=== PATIENT | male | born 1975 | race Caucasian/White ===

== ENCOUNTER 2017-01-15 11:09 | Emergency (ER) | payer BC ==
[2017-01-15 11:46] VITALS: BP 130/86
--- NOTE | 2017-01-15 12:20 | UC ---
Throat Pain/Nasal Robert HPI - HPI Summary HPI Summary: Increased left sinus pressure, ear pain, cough and low grade fever over the last week. - History of Current Complaint Chief Complaint: UCRespiratory Stated Complaint: SINUS Time Seen by Provider: 01/15/17 12:09 Hx Obtained From: Patient Onset/Duration: Lasting Minutes, Lasting Days Severity: Moderate Cough: Nonproductive Associated Signs & Symptoms: Positive: Wheezing, Sinus Discomfort, Fever - Allergies/Home Medications Allergies/Adverse Reactions: Allergies Allergy/AdvReac Type Severity Reaction Status Date / Time Penicillins Allergy Intermediate Hives Verified 01/15/17 11:46 PMH/Surg Hx/FS Hx/Imm Hx Previously Healthy: Yes - Surgical History Surgical History: Yes Surgery Procedure, Year, and Place: left leg vein stripping - Family History Known Family History: Negative: Diabetes - Social History Alcohol Use: Occasionally Substance Use Type: None Smoking Status (MU): Never Smoked Tobacco Review of Systems Constitutional: Fever Skin: Negative Eyes: Negative ENT: Sore Throat, Ear Ache, Nasal Discharge, Sinus Congestion, Sinus Pain/ Tenderness Respiratory: Cough Cardiovascular: Negative Gastrointestinal: Negative Genitourinary: Negative Motor: Negative Neurovascular: Negative Musculoskeletal: Negative Neurological: Headache Psychological: Negative All Other Systems Reviewed And Are Negative: Yes Physical Exam Triage Information Reviewed: Yes Appearance: Well-Nourished, Ill-Appearing, Pain Distress Vital Signs: Initial Vital Signs Temp 98.4 F 01/15/17 11:42 Pulse 64 01/15/17 11:42 Resp 16 01/15/17 11:42 BP 130/86 01/15/17 11:42 Pulse Ox 98 01/15/17 11:42 Vital Signs Reviewed: Yes Eye Exam: Normal ENT: Positive: Pharyngeal erythema, Nasal congestion, Nasal drainage, TM bulging , TM dull, TM red Dental Exam: Normal Neck exam: Normal Neck: Positive: Supple, Nontender, No Lymphadenopathy Respiratory Exam: Normal Respiratory: Positive: Chest non-tender, Lungs clear, Normal breath sounds Cardiovascular Exam: Normal Cardiovascular: Positive: RRR, No Murmur, Pulses Normal Abdominal Exam: Normal Abdomen Description: Positive: Nontender, No Organomegaly, Soft Bowel Sounds: Positive: Present Musculoskeletal Exam: Normal Musculoskeletal: Positive: Strength Intact, ROM Intact, No Edema Neurological Exam: Normal Neurological: Positive: Alert, Muscle Tone Normal Psychological Exam: Normal Skin Exam: Normal Throat Pain/Nasal Course/Dx - Course Course Of Treatment: hx obtained, exam performed, meds reviewed, treated for sinusitis - Differential Dx/Diagnosis Differential Diagnosis/HQI/PQRI: Pharyngitis, Sinusitis Provider Diagnoses: sinusitis Discharge - Discharge Plan Condition: Stable Disposition: HOME Prescriptions: Azithromyxin ERNST (NF) [Z-Ernst (Zithromax) 250 mg tabs #6] 2 tab PO .TODAY, THEN 1 DAILY #6 tab predniSONE TAB* [Deltasone TAB*] 40 mg PO DAILY #10 tab Patient Education Materials: Sinusitis (ED) Referrals: No Primary Care Phys,NOPCP [Primary Care Provider] - Additional Instructions: 1. take the medication as prescribed. 2. Increase fluid intake and get plenty of rest 3. Continue with the loratidine as needed.
== END 2017-01-15 12:17 | disposition home or self-care (01) ==
LOC: UCCORT 11:09
DX: J32.9 Chronic sinusitis, unspecified (principal); Z88.0 Allergy status to penicillin
CPT/HCPCS: 99212; G0463

== ENCOUNTER 2017-12-17 11:25 | Emergency (ER) | payer BC ==
[2017-12-17 11:58] VITALS: BP 116/76
--- NOTE | 2017-12-17 12:31 | ED ---
Throat Pain/Nasal Congestion - HPI Summary HPI Summary: 42 yr old male with the complaint of sinus pressure, post nasal drip. Onset about 2 weeks ago. No cough. No fever, chills. He has had prior sinus issues. The pressure is mostly in the maxillary sinus areas. - History of Current Complaint Chief Complaint: UCGeneralIllness Time Seen by Provider: 12/17/17 12:15 - Allergies/Home Medications Allergies/Adverse Reactions: Allergies Allergy/AdvReac Type Severity Reaction Status Date / Time Penicillins Allergy Hives Verified 12/17/17 11:55 PMH/Surg Hx/FS Hx/Imm Hx Endocrine/Hematology History: Denies: Hx Diabetes, Hx Thyroid Disease Cardiovascular History: Denies: Hx Hypertension Respiratory History: Denies: Hx Asthma, Hx Chronic Obstructive Pulmonary Disease (COPD) GI History: Reports: Hx Gastroesophageal Reflux Disease - NO MEDICATION - DIET CONTROLLED Denies: Hx Ulcer Sensory History: Denies: Hx Contacts or Glasses, Hx Hearing Aid Opthamlomology History: Denies: Hx Contacts or Glasses - Surgical History Surgery Procedure, Year, and Place: left leg vein stripping Infectious Disease History: No Infectious Disease History: Denies: Hx Clostridium Difficile, Hx Hepatitis, Hx Human Immunodeficiency Virus (HIV), Hx of Known/Suspected MRSA, Hx Shingles, Hx Tuberculosis, Hx Known/ Suspected VRE, Hx Known/Suspected VRSA, History Other Infectious Disease, Traveled Outside the [place] in Last 30 Days - Family History Known Family History: Positive: Other - Sinus disease in his mother Negative: Diabetes - Social History Alcohol Use: Occasionally Substance Use Type: Reports: None Smoking Status (MU): Never Smoked Tobacco Review of Systems Constitutional: Negative Positive: Nasal Discharge, Other - sinus pain All Other Systems Reviewed And Are Negative: Yes Physical Exam Triage Information Reviewed: Yes Vital Signs On Initial Exam: Initial Vitals Temp Pulse Resp BP Pulse Ox 98 F 66 16 116/76 100 12/17/17 11:52 12/17/17 11:52 12/17/17 11:52 12/17/17 11:52 12/17/17 11:52 Vital Signs Reviewed: Yes Appearance: Positive: Well-Appearing, No Pain Distress Skin: Positive: Warm Head/Face: Positive: Normal Head/Face Inspection Eyes: Positive: EOMI ENT: Positive: TMs normal, Sinus tenderness. Negative: Muffled voice, Hoarse voice Neck: Positive: Nontender Respiratory/Lung Sounds: Positive: Clear to Auscultation, Breath Sounds Present Cardiovascular: Positive: RRR. Negative: Murmur Abdomen Description: Positive: Nontender Musculoskeletal: Positive: Strength/ROM Intact Neurological: Positive: Sensory/Motor Intact, Alert, Oriented to Person Place, Time, CN Intact II-III Psychiatric: Positive: Normal - [place] Coma Scale Best Eye Response: 4 - Spontaneous Best Motor Response: 6 - Obeys Commands Best Verbal Response: 5 - Oriented Coma Scale Total: 15 Diagnostics - Vital Signs Vital Signs Temp Pulse Resp BP Pulse Ox 12/17/17 11:52 98 F 66 16 116/76 100 - Laboratory Lab Statement: Any lab studies that have been ordered have been reviewed, and results considered in the medical decision making process. EENT Course/Dx - Course Course Of Treatment: 42 yr old male with sinusitis. 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 FU with PMD> - Diagnoses Provider Diagnoses: Sinusitis Discharge - Sign-Out/Discharge Documenting (check all that apply): Discharge/Admit/Transfer - Discharge Plan Condition: Good Disposition: HOME Prescriptions: DOXYcycline CAP(*) [DOXYcycline 100MG CAP(*)] 100 mg PO BID #20 cap Patient Education Materials: Sinusitis (ED) Referrals: Genet Brooks PA [Primary Care Provider] - 2 Days - Billing Disposition and Condition Condition: GOOD Disposition: Home
== END 2017-12-17 12:39 | disposition home or self-care (01) ==
LOC: UCCORT 11:25
DX: J32.9 Chronic sinusitis, unspecified (principal); Z88.0 Allergy status to penicillin
CPT/HCPCS: 99212; G0463

== ENCOUNTER 2018-06-16 14:41 | Emergency (ER) | payer BC ==
--- OUTSIDE RECORDS SUMMARY | 2018-06-16 14:52 | XMS REPORT | Continuity of Care Document ---
:1975 External Reference #:[id number] Author Name Genet Brooks PA Address [address] [place] [address] Care Team Providers Name Role Phone Genet Brooks PA Care Team Information Certified Medicine Aide Unavailable Payers Type Date Identification Numbers Payment Provider Subscriber Effective: 2009 Policy Number: [id number] [facility] [employer] [place] Alicia PayID: [id number] [address] [place] [address] Effective: 2005 Policy Number: [id number] [facility] [employer] [place] Expires: 2009 Group Number: [id number] [address] PayID: [id number] [place] [address] Onset: 2010 Policy Number: [id number] [facility] [place] Alicia PayID: [id number] Attn:Raquel Redman [address] [place] [address] Effective: 2011 Policy Number: [id number] [facility] [place] Alicia Onset: 2011 PayID: [id number] Attn Raquel Redman [address] [place] [address] Onset: 2017 Policy Number: [id number] [place] Alicia PayID: [id number] [address] [facility] [address] [place] [address] Onset: 2017 PayID: [id number] Workers' Comp (WC) [place] Alic[place] Advance Directives Description No Information Available Problems Description No Information Family History Date Family Member(s) Problem(s) Comments Mother Hypercholesterolemia First Sister Migraine Headache Maternal Grandfather due to PA () Maternal Uncles due to PA () - neri- age 58 Paternal Aunts due to Stroke () Social History Type Date Description Comments Sex Unknown Marital Status Lives With Children Lives With 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 ETOH Use Occasionally consumes alcohol Tobacco Use Start: Unknown Patient has never smoked Recreational Drug Use Denies Drug Use Allergies, Adverse Reactions, Alerts Date Description Reaction Status Severity Comments 01/12/2010 Penicillin rash-hives Active Medications Medication Date Status Form Strength Qnty SIG Indications Ordering Provider Naproxen Active Tablets 500mg 30tabs 1 tablet M25.522 Drew, 018 by mouth Milad, twice DO daily with food Ibuprofen Active Tablets 200mg 90tabs 1 po Q8 Mima, 011 Hours prn Atif, DO Azithromycin Hx Tablets 250mg 6tabs 2 tablets Rajendra 018 - by mouth Milad, on day 1 DO 018 then 1 tablet on days 2-5 Clindamycin HCL Hx Capsules 300mg 15caps 1 by Rajendra 018 - mouth Milad, three DO 018 times daily for 5 days Ibuprofen Hx Tablets 800mg 90tabs 1 po tid Mima, 011 - with food Atif, x 1 week DO 015 then prn Immunizations CPT Code Status Date Vaccine Lot # [id number] Given 05/21/2017 Tdap (Adacel) Ages 7 And Above Only Vital Signs Date Vital Result Comment 05/22/2018 11:04am Body Temperature 98.7 F Weight 197.00 lb Heart Rate 70 /min BP Systolic 120 mmHg BP Diastolic 74 mmHg Respiratory Rate 18 /min Height 71.5 inches 5'11.50" BMI (Body Mass Index) 27.1 kg/m2 10/09/2017 11:39am Body Temperature 98.2 F Weight 194.00 lb Heart Rate 72 /min BP Systolic 128 mmHg BP Diastolic 76 mmHg Height 71.5 inches 5'11.50" BMI (Body Mass Index) 26.7 kg/m2 09/17/2017 11:29am Weight 198.00 lb Heart Rate 70 /min BP Systolic 128 mmHg BP Diastolic 72 mmHg Respiratory Rate 18 /min Height 71.5 inches 5'11.50" BMI (Body Mass Index) 27.2 kg/m2 09/10/2017 9:34am Weight 198.00 lb Heart Rate 74 /min BP Systolic 120 mmHg BP Diastolic 76 mmHg Respiratory Rate 18 /min Height 71.5 inches 5'11.50" BMI (Body Mass Index) 27.2 kg/m2 09/05/2017 4:13pm Weight 194.00 lb Heart Rate 82 /min BP Systolic 124 mmHg BP Diastolic 78 mmHg Respiratory Rate 17 /min Height 71.5 inches 5'11.50" BMI (Body Mass Index) 26.7 kg/m2 05/21/2017 11:28am Body Temperature 98.5 F Weight 193.00 lb Heart Rate 72 /min BP Systolic 110 mmHg BP Diastolic 70 mmHg Respiratory Rate 18 /min Height 71.5 inches 5'11.50" BMI (Body Mass Index) 26.5 kg/m2 10/12/2014 3:12pm Weight 195.00 lb Heart Rate 68 /min BP Systolic 122 mmHg BP Diastolic 78 mmHg Respiratory Rate 18 /min Height 71 inches 5'11" BMI (Body Mass Index) 27.2 kg/m2 09/28/2014 10:35am Weight 193.00 lb Heart Rate 72 /min BP Systolic 130 mmHg BP Diastolic 80 mmHg Respiratory Rate 18 /min Height 71 inches 5'11" BMI (Body Mass Index) 26.9 kg/m2 09/08/2014 9:15am Weight 194.00 lb Heart Rate 72 /min BP Systolic 134 mmHg BP Diastolic 72 mmHg Respiratory Rate 18 /min Height 71 inches 5'11" BMI (Body Mass Index) 27.1 kg/m2 03/07/2011 10:28am Weight 187.00 lb Heart Rate 87 /min BP Systolic 124 mmHg BP Diastolic 80 mmHg Respiratory Rate 17 /min Height 71.25 inches 5'11.25" 02/28/2011 10:07am Weight 186.00 lb Heart Rate 69 /min BP Systolic 126 mmHg BP Diastolic 88 mmHg Respiratory Rate 17 /min Height 71.25 inches 5'11.25" 02/21/2011 9:37am Weight 187.00 lb Heart Rate 64 /min BP Systolic 114 mmHg BP Diastolic 78 mmHg Respiratory Rate 17 /min Height 71.25 inches 5'11.25" 02/15/2011 1:54pm Weight 184.00 lb Heart Rate 60 /min BP Systolic 118 mmHg BP Diastolic 82 mmHg Respiratory Rate 18 /min Height 71.25 inches 5'11.25" 06/17/2010 8:42am Weight 189.00 lb Heart Rate 76 /min BP Systolic 102 mmHg l arm BP Diastolic 78 mmHg l arm Respiratory Rate 18 /min 01/12/2010 10:55am Weight 183.00 lb Heart Rate 64 /min BP Systolic 112 mmHg l arm BP Diastolic 80 mmHg l arm Respiratory Rate 18 /min 10/12/2009 9:17am Body Temperature 98.5 F Weight 182.00 lb Heart Rate 81 /min BP Systolic 124 mmHg BP Diastolic 82 mmHg 03/17/2009 3:59pm Body Temperature 98.2 F Weight 188.00 lb Heart Rate 66 /min BP Systolic 130 mmHg BP Diastolic 80 mmHg Respiratory Rate 15 /min 07/22/2008 1:19pm Weight 187.00 lb Heart Rate 60 /min BP Systolic 122 mmHg BP Diastolic 74 mmHg Respiratory Rate 14 /min 06/24/2008 3:38pm Weight 184.00 lb Heart Rate 80 /min BP Systolic 120 mmHg BP Diastolic 86 mmHg Height 71.25 inches 5'11.25" Results Test Date Facility Test Result H/L Range Note Laboratory test finding 05/22/2018 [facility] PSA <pending> CBC With Auto Diff 05/21/2017 [facility] WBC 7.3 K/uL 4.1-11.0 1 RBC 5.12 M/uL 4.60-6.10 Hemoglobin 15.5 gm/dL 13.5-18.0 Hematocrit 45.0 % 41.0-53.0 MCV 87.9 fL 80.0-97.0 MCH 30.3 pg 27.0-32.0 MCHC 34.5 g/dL 32.0-36.0 RDW 12.8 % 11.5-14.5 PLT Count 338 K/ul 140-400 MPV 8.3 FL 7.1-10.7 Comprehensive Met Panel-[facility] 05/21/2017 [facility] Sodium 141 mmol/L 135- 146 2 Potassium 4.7 mmol/L 3.5-5.2 Chloride# 104 mmol/L 97-110 3 Carbon Dioxide 28 mmol/L 24-34 Glucose 86 mg/dL 70-105 Creatinine 1.0 mg/dL 0.5-1.4 Calcium 9.5 mg/dL 8.5-10.2 Total Protein 6.6 g/dL 6.0-8.0 Albumin 4.3 g/dL 3.6-4.9 Globulin 2.3 g/dL 2.0-3.5 A/G Ratio 1.9 Ratio 1.0-2.2 Total Bilirubin 1.3 mg/dL 0.1-1.3 Alkaline Phosphatase 59 U/L 24-140 Alt 22 U/L 3-42 Ast 20 U/L 8-42 Vivien Egfr >60 >60 4 Non Vivien Egfr >60 >60 5 Anion Gap 9 mmol/L 7-16 6 BUN 15 mg/dL 6-26 Laboratory test finding 05/21/2017 [facility] TSH 0.58 uIU/mL 0.35-4.94 Vit D25oh 37 ng/mL 31-100 Vitamin B12 384 pg/mL 180-914 Reflex Manual Differential 05/21/2017 [facility] Neutrophils 66 % 35-75 Band 0 % 0-11 Lymphocytes 25 % 16-52 Monocytes 8 % 0-8 Eosinophils 1 % 0-5 Basophils 0 % 0-4 Abs Neutrophils# 4.8 K/ul 1.8-7.7 Abs Lymphocytes# 1.8 K/ul 1.2-4.8 Abs Monocytes# 0.6 K/ul 0.0-0.8 Abs Eosinophils# 0.1 K/ul 0.0-0.5 Abs Basophils# 0.0 K/ul 0.0-0.3 Abs BandCells# 0.0 K/ul 0.0-1.2 Platelet Estimate NORMAL Normal RBC Morphology NORMAL Normal Lyme Igm/Igg AB -RL 05/21/2017 [facility] Lyme Igm/Igg AB @ NEGATIVE (Neg) 7 Laboratory test finding 09/28/2014 [facility] SEE NOTE 8 Lipid 09/14/2014 [facility] Cholesterol 202 mg/dL High 50-199 Triglycerides 99 mg/dL 30-200 HDL 44 mg/dL 29-71 9 Chol/ HDL Ratio 4.6 ratio 4.0-6.7 VLDL 20 mg/dL 2-29 LDL (Calc) 138 mg/dL High 20-99 10 Basic (BMP) 09/14/2014 [facility] Sodium 137 mmol/L 134-142 Potassium 4.5 mmol/L 3.5-5.2 Chloride 102 mmol/L 97-109 Carbon Dioxide 31 mmol/L 24-34 Glucose 91 mg/dL 70-105 BUN 16 mg/dL 6-26 Creatinine 1.1 mg/dL 0.5-1.4 Calcium 9.5 mg/dL 8.5-10.2 Anion Gap 9 mmol/L 6-14 Non Vivien Egfr >60 >60 11 Vivien Egfr >60 >60 12 Laboratory test finding 10/12/2009 N2N/CCD Import Culture Throat See Note 13 1 PERFORM MANUAL DIFFERENTIAL 2 Updated reference range on new analyzer 3 Updated reference range on new analyzer 4 Concerning GFR Guidelines for Americans: Normal function or mild renal disease, if clinically at risk: >/=60 mL/min Moderately decreased: 30-59 Severely decreased: 15-29 Renal failure: <15 5 Concerning GFR Guidelines: Normal function or mild renal disease, if clinically at risk: >/=60 mL/min Moderately decreased: 30-59 Severely decreased: 15-29 Renal failure: <15 Glomerular Filtration Rate (GFR) is estimated based on the MDRD equation, which assumes a steady state for creatinine as recommended by the National Kidney Disease Education Program in conjunction with the National Institutes of Health and the National Kidney Foundation. Clinical conditions in which it may be necessary to measure GFR by using clearance methods include extremes of age and body size, severe malnutrition or obesity, diseases of skeletal muscle, paraplegia or quadriplegia, vegetarian diet, rapidly changing kidney function, and calculation of the dose of potentially toxic drugs that are excreted by the kidneys. 6 Updated reference range on new analyzer 7 A Negative serologic test for Lyme Disease indicates no serologic evidence of infection with B burgdorferi at the time this specimen was collected. A repeat specimen should be collected in 2 to 4 weeks if clinically indicated. Unless otherwise specified, testing performed by [email or web address] [place] [address] 8 Laboratory [email or web address] [place] [address] Surgical Pathology Report Specimen(s) Received A: Upper back B: Mid back C: Lower back Clinical Diagnosis and History Abnormal skin lesions Gross Description Specimen A received in formalin labeled with the patient's name is a 1.0 x 0.7 cm ellipse of bae skin excised to a maximum depth of 0.7 cm. The specimen is almost entirely surfaced by a 0.6 x 0.6 cm flat, brown black pigmented lesion, which has an irregular border and is located 0.1 cm from a nearest transverse margin. The margin is inked, specimen serially sectioned transversely and entirely submitted in one cassette. Specimen B received in formalin in a smaller container labeled with the patient's name is a 1.5 x 0.9 cm ellipse of bae skin excised to a maximum depth of 0.8 cm. The specimen contains a 0.7 x 0.5 cm brown bae pigmented area, which is flat, has an ill defined border and is located 0.1 cm from a nearest transverse margin. The margin is inked, specimen serially sectioned transversely and entirely submitted in two cassettes. Specimen C received in formalin labeled with the patient's name, in the larger container, is a 1.5 x 0.9 cm ellipse of bae skin excised to a maximum depth of 0.4 cm. This specimen is almost entirely surfaced by a 1.1 x 0.8 cm flat, brown black pigmented lesion that is located 0.1 cm from the nearest transverse and longitudinal ends. The margin is inked, specimen serially sectioned transversely and entirely submitted in two cassettes. These specimens were received labeled with the patient's name, and unlabeled as to specimen location. Per the doctor's office, both Mahnaz and the physician's certified registered dental assistant Vicki Scott, the smallest specimen represents the upper back specimen, and the lower back specimen was placed in the largest of the specimen containers. Based on this criteria, the containers were labeled with the upper back specimen designated as smallest specimen and represents part A, the mid back specimen is one of the larger specimens received in the smaller container, and the lower back specimen represents one of the larger specimens received in the larger container. (The measurements of the specimens may be less than those in vivo due to tissue shrinkage during histologic fixation and processing.) jlg rff/mwg Diagnosis A) SKIN, UPPER BACK, EXCISION: Lentiginous compound nevus with mild architectural atypia. The margins are negative for involvement. Multiple levels examined. B) SKIN, MID BACK, EXCISION: Dysplastic compound nevus with mild atypia. The lesion very focally involves the peripheral margins. Multiple levels examined. C) SKIN, LOWER BACK, EXCISION: Lentiginous compound nevus. Multiple levels examined. Technical component processed at [facility], Histopathology, [address], [place], [address]. Diagnosis and reporting performed at Laboratory [facility], [address] [place] [id number]. Reported: 10/02/2014 19:33 Electronically Signed Out By Tico Aj MD paw ICD9 Codes 239.2 Unless otherwise specified, testing performed by Laboratory [address] [address] 9 Per NCEP ATP III Guidelines: Results lower than 40 mg/dL are suggestive of increased risk for coronary artery disease. Results > or=to 60 mg/dL are considered a negative risk factor. 10 Per NCEP ATP III Guidelines: Normal Population <130 Patients with medical conditions: CHD/DM Optimal: <100 Borderline high: 130-159 High: 160-189 Very high: >189 11 Concerning GFR Guidelines: Normal function or mild renal disease, if clinically at risk: >/=60 mL/min Moderately decreased: 30-59 Severely decreased: 15-29 Renal failure: <15 Glomerular Filtration Rate (GFR) is estimated based on the MDRD equation, which assumes a steady state for creatinine as recommended by the National Kidney Disease Education Program in conjunction with the National Institutes of Health and the National Kidney Foundation. Clinical conditions in which it may be necessary to measure GFR by using clearance methods include extremes of age and body size, severe malnutrition or obesity, diseases of skeletal muscle, paraplegia or quadriplegia, vegetarian diet, rapidly changing kidney function, and calculation of the dose of potentially toxic drugs that are excreted by the kidneys. 12 Concerning GFR Guidelines for Americans: Normal function or mild renal disease, if clinically at risk: >/=60 mL/min Moderately decreased: 30-59 Severely decreased: 15-29 Renal failure: <15 13 NORMAL THROAT KEN Procedures Date Code Description Status 09/28/2014 63898 Excise Benign Lesion 1.1-2CM Trunk/Arm/Leg Completed 09/28/2014 32592 Excise Benign Lesion 1.1-2CM Trunk/Arm/Leg Completed 09/28/2014 22548 Excise Benign Lesion .6-1CM Trunk/Arm/Leg Completed Encounters Type Date Location Provider Dx Diagnosis Office Visit 10/09/2017 [facility] Genet Brooks PA W54.0xxD Bitten by dog, 11:30a subsequent encounter Z68.26 Body mass index (BMI) 26.0-26.9, adult S51.812D Laceration without foreign body of LEFT forearm, subs encntr Office Visit 09/05/2017 4:00p [facility] Milad Drew DO S50.02xD Contusion of LEFT elbow, subsequent encounter Office Visit 05/21/2017 11:30a [facility] Genet Brooks PA Z00.00 Encntr for general adult medical exam w/o abnormal findings R53.83 Other fatigue Z23 Encounter for immunization Office Visit 10/12/2014 3:00p [facility] Leena Scott PA V58.32 Encounter For Removal Of Sutures 477.9 Rhinitis Allergic Cause Unspec Office Visit 09/08/2014 9:00a [facility] Leena Scott PA 787.1 Heartburn 454.1 Varicose Veins Lower Extrem W/ Inflammation 709.8 Skin Disorders Other Spec V70.9 Examination General Medical Unspec V17.3 History Family Ischemic Heart Disease Plan of Treatment Future Appointment(s):06/02/2019 9:00 am - Genet Brooks PA at [facility]2017 - Genet Brooks PAZ00.00 Encounter for general adult medical examination without abnoComments:Screening for colon cancer: no reason for early screeningRecommend periodic ophtho and dental care. Recommend limit alcohol to < 2 per day for menHealthy lifestyle encouraged: Sleep target 7- 8 hours per dayExercise, target 30 - 60 min moderate to vigorous exercise per day, with 5 days of week aerobic, 2 days per week strength and flexibility. Hydration, target 2.5 qrts per day of total fluids. Diet. Low fat/ cholRecommend annual wellness visit.Referral:Adolfo Manuel DR, UrologyFollow up:1 Z80.42 Family history of malignant neoplasm of prostateComments:Family history prostate cancer in father age 54Will check PSA for evalZ68.27 Body mass index (BMI) 27.0-27.9, adultComments:Diet changes, exercise
[2018-06-16 15:29] VITALS: BP 119/75
--- NOTE | 2018-06-16 15:40 | UC ---
Respiratory Complaint HPI - HPI Summary HPI Summary: The patient is a 43-year-old male that presents here for evaluation of a dry cough that he has had for 2-3 days. He has had some mild nasal congestion for 4 -5 days. He denies any fever or chills. He denies any headache or myalgias. He denies any chest pain or shortness of breath. The cough is not productive. His cough is worse at night. - History of Current Complaint Chief Complaint: UCRespiratory Stated Complaint: SINUS COMPLAINT,COUGH Time Seen by Provider: 06/16/18 15:32 Hx Obtained From: Patient Onset/Duration: Gradual Onset Timing: Constant Severity Initially: Mild Severity Currently: Mild Pain Intensity: 0 Pain Scale Used: 0-10 Numeric Character: Cough: Nonproductive Aggravating Factors: Nothing Associated Signs And Symptoms: Positive: Nasal Congestion. Negative: Dyspnea, Fever, Chills, Pleuritic Chest Pain, Wheezing, Hemoptysis, Dizziness, Calf Pain , Calf Swelling, Edema, URI, Hoarseness, Sinus Discomfort - Allergies/Home Medications Allergies/Adverse Reactions: Allergies Allergy/AdvReac Type Severity Reaction Status Date / Time Penicillins Allergy Hives, and Verified 06/16/18 15:21 hospitalization Home Medications: Home Medications Guaifenesin/Pseudo 600/60(NF) [Mucinex D 600/60 (NF)] 1 tab PO Q12H PRN [History Confirmed 06/16/18] Ibuprofen/Pseudoephedrine HCl [Advil Cold & Sinus] 2 tab PO QAM PRN 06/16/18 [ History Confirmed 06/16/18] PMH/Surg Hx/FS Hx/Imm Hx Previously Healthy: Yes - Surgical History Surgical History: Yes Surgery Procedure, Year, and Place: left leg vein stripping - Family History Known Family History: Positive: Hypertension, Other - Sinus disease in his mother Negative: Diabetes - Social History Alcohol Use: Occasionally Substance Use Type: None Smoking Status (MU): Never Smoked Tobacco Review of Systems All Other Systems Reviewed And Are Negative: Yes Constitutional: Positive: Negative Skin: Positive: Negative Eyes: Positive: Negative ENT: Positive: Negative Respiratory: Positive: Cough Cardiovascular: Positive: Negative Gastrointestinal: Positive: Negative Genitourinary: Positive: Negative Motor: Positive: Negative Neurovascular: Positive: Negative Musculoskeletal: Positive: Negative Neurological: Positive: Negative Psychological: Positive: Negative Physical Exam Triage Information Reviewed: Yes Appearance: Well-Appearing, No Pain Distress, Well-Nourished Vital Signs: Initial Vital Signs Temp 98.5 F 06/16/18 15:25 Pulse 76 06/16/18 15:25 Resp 18 06/16/18 15:25 BP 119/75 06/16/18 15:25 Pulse Ox 99 06/16/18 15:25 Vital Signs Reviewed: Yes Eyes: Positive: Conjunctiva Clear ENT: Positive: Hearing grossly normal, Nasal congestion, TMs normal, Uvula midline. Negative: Nasal drainage, Tonsillar swelling, Tonsillar exudate, Trismus, Muffled voice, Hoarse voice, Sinus tenderness Neck: Positive: Supple, Nontender, No Lymphadenopathy Respiratory: Positive: Lungs clear, Normal breath sounds, No respiratory distress, No accessory muscle use Cardiovascular: Positive: RRR, No Murmur Musculoskeletal: Positive: ROM Intact, No Edema Neurological: Positive: Alert Psychological Exam: Normal Skin Exam: Normal UC Diagnostic Evaluation - Laboratory O2 Sat by Pulse Oximetry: 99 - normal/not hypoxic Respiratory Course/Dx - Differential Dx/Diagnosis Provider Diagnosis: URI with cough and congestion Discharge - Sign-Out/Discharge Documenting (check all that apply): Patient Departure All imaging exams completed and their final reports reviewed: No Studies - Discharge Plan Condition: Stable Disposition: HOME Prescriptions: Benzonatate CAP* [Tessalon CAP*] 100 - 200 mg PO TID PRN #28 cap PRN Reason: Cough Patient Education Materials: Acute Cough (ED) Referrals: Genet Brooks PA [Primary Care Provider] - 5 Days (if not improved) - Billing Disposition and Condition Condition: STABLE Disposition: Home
== END 2018-06-16 15:46 | disposition home or self-care (01) ==
LOC: UCCORT 14:41
DX: Z88.0 Allergy status to penicillin (principal); J06.9 Acute upper respiratory infection, unspecified; R05 Cough; R09.81 Nasal congestion
CPT/HCPCS: 99212; G0463